=== PATIENT | female | born 1940 | race Caucasian/White ===

== ENCOUNTER 2017-08-13 13:12 | Observation (INO) | payer OTHER ==
[2017-08-13] VITALS (7 sets, daily range): BP systolic 117–125; BP diastolic 53–57
[~2017-08-13] VITALS: Ht 154.9 cm; Wt 51.7 kg
[~2017-08-13 13:12] MED LIST: AMLODIPINE BESYL5 MG PO; CALCIUM 500+D1 EACH PO; DICYCLOMINE HCL10 MG PO; DIOVAN160 MG PO; FERROUS SULFAT325 MG PO; FISH OIL500 M1 PO; FLECTOR PO; FLECTOR1 EACH PO; HYDROCHLOROTHIA25 MG PO; LASIX20 MG PO; LEXAPRO10 MG PO; MULTIVITAMINS1 EAC7 PO; NEURONTIN100 MG PO; PLETAL50 MG PO; TYLENOL WITH C1 EACH PO; ULTRAM 50MG50 MG PO; VALIUM10 MG PO; VITAMIN C100 MG PO; VITAMIN C1000 MG PO
--- OUTSIDE RECORDS SUMMARY | 2017-08-13 13:15 | XMS REPORT ---
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 Allergies, Adverse Reactions, Alerts This patient has no known allergies or adverse reactions. Medications This patient has no known medications. Results Test Description Test Time Test Comments Text Results Atomic Results Result Comments CHEST SINGLE (PORTABLE) [place] [address] Patient Name: JAME ARELLANO MR #: [id number] : 1940 Age/Sex: 76/F Req #: [id number] Adm Physician: Ordered by: CAM RUIZ MD Report #: [id number] Location: ER Room/Bed: Procedure: [id number] DX/CHEST SINGLE (PORTABLE) Exam Date: 02/04/17 Exam Time: 1320 REPORT STATUS: Signed PROCEDURE: A single AP view of the chest. COMPARISON: 03/06/16 INDICATIONS: DIARRHEA X 4 DAYS FINDINGS: Lines/tubes: None. Lungs: The lungs are well inflated and clear. There is no evidence of pneumonia or pulmonary edema. Pleura: There is no pleural effusion or pneumothorax. Heart and mediastinum: The heart and the mediastinum are unremarkable. Bones: No acute bony abnormality. IMPRESSION: 1. No acute cardiopulmonary disease. Dictated by: Jordan Mancia M.D. on 02/04/2017 at 13:34 Electronically approved by: Jordan Mancia M.D. on 02/04/2017 at 13:34 Dictated By: JORDAN MANCIA MD 33 Transcribed By: ARNIE on 02/04/171333 COPY TO: CAM RUIZ MD CT ABDOMEN/PELVIS W [place] [address] Patient Name: JAME ARELLANO MR #: [id number] : 1940 Age/Sex: 76/F Req #: [id number] Adm Physician: Ordered by: CAM RUIZ MD Report #: [id number] Location: ER Room/Bed: Procedure: [id number] CT/CT ABDOMEN/PELVIS W Exam Date: Exam Time: REPORT STATUS: Signed PROCEDURE: CT ABDOMEN AND PELVIS WITH CONTRAST TECHNIQUE: The abdomen and pelvis were scanned utilizing a multidetector helical scanner from the diaphragm to the lesser trochanter after the IV administration of 100cc of Isovue 370 and the oral administration of Gastroview. Coronal and sagittal multiplanar reformations were obtained. DLP: 239.88 mGy-cm COMPARISON: CT dated 03/04/16 INDICATIONS: COLITIS FINDINGS: LOWER THORAX: Bibasilar posterior subpleural bullous changes versus honeycombing. HEPATOBILIARY: No focal hepatic lesions. No biliary ductal dilatation. SPLEEN: No splenomegaly. PANCREAS: No focal masses or ductal dilatation. ADRENALS: No adrenal nodules. KIDNEYS/URETERS: No hydronephrosis. No stones. No adrenal mass. Bilateral subcentimeter hypodensities which are too small to characterize. PELVIC ORGANS/BLADDER: Unremarkable. PERITONEUM / RETROPERITONEUM: No free air or fluid. LYMPH NODES: No lymphadenopathy. 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 GI TRACT: Colonic diverticulosis without evidence of diverticulitis. There is wall thickening of the colon which could be due to under distention. Status post at least partial ascending colon resection. Suture line in right mid abdomen is intact. There is wall thickening, mucosal hyperenhancement and narrowing of the distal ileum in the right lower quadrant (series 2, image 49). BONES AND SOFT TISSUES: Lower lumbar spine degenerative changes, especially at L3-L4. There is grade 1 anterolisthesis of L4 in relation to L5 and L5 in relation to S1. IMPRESSION: Wall thickening/luminal narrowing and mucosal hyperenhancement of distal ileum. There is also wall thickening of the colon. Findings are concerning for infectious/inflammatory process like distal ileitis/colitis. Colonic diverticulosis without evidence of diverticulitis. Dictated by: Jordan Mancia M.D. on 02/04/2017 at 15:45 Electronically approved by: Jordan Mancia M.D. on 02/04/2017 at 15:45 Dictated By: JORDAN MANCIA MD [id number] Transcribed By: ARNIE on 02/04/17 1540 COPY TO: CAM RUIZ MD
[2017-08-13] MEDS ORDERED: SODIUM CHLORIDE 0.9% 1000ML 1,000 ML IV STA (13:41)
[2017-08-13] MEDS ORDERED: ASPIRIN 81 MG CHEW TAB PO ONE (13:45)
[2017-08-13] MEDS ORDERED: CEFTRIAXONE SOD 1 GM VIAL IM ONE (13:45)
[2017-08-13 13:57] LABS: BASOPHILS # (AUTO) 0.1 (0.0-0.1); BASOPHILS % 0.5 % (0.0-1.0); EOSINOPHILS # (AUTO) 0.1 (0.0-0.4); EOSINOPHILS % 0.7 % (0.0-6.0); HEMATOCRIT 32.3 % (34.2-44.1); HEMOGLOBIN 10.4 g/dL (12.0-16.0); LYMPHOCYTES # (AUTO) 0.8 (1.0-3.2); LYMPHOCYTES % 6.2 % (18.0-39.1); MEAN CORPUSCULAR HEMOGLOBIN 26.9 pg (28-32); MEAN CORPUSCULAR HGB CONC 32.2 g/dL (31-35); MEAN CORPUSCULAR VOLUME 83.7 fL (81-99); MONOCYTES # (AUTO) 1.2 (0.2-0.8); MONOCYTES % 9.6 % (4.4-11.3); NEUTROPHILS # (AUTO) 10.5 (2.1-6.9); NEUTROPHILS % 82.7 % (38.7-80.0); PLATELET COUNT 318 x10e3/uL (140-360); RED BLOOD COUNT 3.86 x10e6/uL (3.6-5.1); RED CELL DISTRIBUTION WIDTH 22.6 % (11.7-14.4)
[2017-08-13 13:57] LABS: BILIRUBIN,URINE NEGATIVE (NEGATIVE); CLARITY,URINE CLEAR (CLEAR); COLOR,URINE YELLOW (YELLOW); KETONES,URINE NEGATIVE (NEGATIVE); LEUKOCYTE ESTERASE ,URINE 2+ (NEGATIVE); NITRITE,URINE NEGATIVE (NEGATIVE); PROTEIN,URINE DIPSTICK NEGATIVE (NEGATIVE); URINE UROBILINOGEN 0.2 mg/dL (0.2 - 1)
[2017-08-13 14:11] LABS: BACTERIA,URINE MODERATE /HPF; EPITHELIAL CELLS,URINE MODERATE /LPF; RBC,URINE 0-5 /HPF (0-5)
[2017-08-13 14:14] LABS: INR 0.96
[2017-08-13 14:15] LABS: PARTIAL THROMBOPLASTIN TIME 29.5 seconds (23.8-35.5)
[2017-08-13] MEDS ORDERED: IBUPROFEN 600 MG TAB PO ONE (14:30)
--- NOTE | 2017-08-13 14:33 | Diagnostic Imaging Report ---
EXAMINATION: CHEST 2 VIEWS INDICATION: Chest pain. \S\ORDER PLACED BY MD \[id number] \S\1400 \S\Y COMPARISON: 03/06/2016 FINDINGS: PA and lateral views TUBES and LINES: None. LUNGS: Lungs are well inflated. Lungs are clear. There is no evidence of pneumonia or pulmonary edema. PLEURA: No pleural effusion or pneumothorax. HEART AND MEDIASTINUM: The cardiomediastinal silhouette is unremarkable. Aorta is calcified and mildly tortuous. BONES AND SOFT TISSUES: Generalized demineralization. No acute osseous lesion. Soft tissues are unremarkable. UPPER ABDOMEN: No free air under the diaphragm. IMPRESSION: No acute thoracic abnormality. Signed by: Dr. Jordan Saldaña MD on 08/13/2017 2:29 PM
[2017-08-13 14:34] LABS: ALANINE AMINOTRANSFERASE 30 IU/L (0-55); ALBUMIN 3.4 g/dL (3.5-5.0); ALKALINE PHOSPHATASE 93 IU/L (40-150); ANION GAP 14.3 mmol/L (8-16); BLOOD UREA NITROGEN 10 mg/dL (7-26); BUN/CREATININE RATIO 13 (6-25); CALCIUM 8.9 mg/dL (8.4-10.2); CARBON DIOXIDE 26 mmol/L (22-29); CHLORIDE 92 mmol/L (98-107); CREATINE KINASE 43 IU/L (29-168); CREATININE, SERUM 0.76 mg/dL (0.57-1.11); EST GLOMERULAR FILTRATION RATE > 60 ML/MIN (60-); GLUCOSE 107 mg/dL (74-118); POTASSIUM 4.3 mmol/L (3.5-5.1); SODIUM 128 mmol/L (136-145)
[2017-08-13] MEDS: SODIUM CHLORIDE 0.9% 1000ML 1,000 ML IV SCH (15:30)
[2017-08-13] MEDS ORDERED: SODIUM CHLORIDE 0.9% 1000ML 1,000 ML ONE (15:38)
[2017-08-13 16:13] LABS: FREE T4 (FREE THYROXINE) 1.2 ng/dL (0.9-1.8); THYROID STIMULATING HORMONE 1.69 uIU/mL (0.350-4.940)
[2017-08-13 16:54] LABS: BILIRUBIN,URINE NEGATIVE (NEGATIVE); CLARITY,URINE CLEAR (CLEAR); COLOR,URINE YELLOW (YELLOW); KETONES,URINE NEGATIVE (NEGATIVE); LEUKOCYTE ESTERASE ,URINE NEGATIVE (NEGATIVE); NITRITE,URINE NEGATIVE (NEGATIVE); PROTEIN,URINE DIPSTICK NEGATIVE (NEGATIVE); URINE UROBILINOGEN 0.2 mg/dL (0.2 - 1)
[2017-08-13 17:11] LABS: EPITHELIAL CELLS,URINE RARE /LPF; TRANSITIONAL EPI CELLS,URINE FEW
[2017-08-13] MEDS ORDERED: TRAMADOL HCL 50 MG TAB PO PRN (18:45)
[2017-08-13] MEDS ORDERED: GABAPENTIN 100 MG CAP PO PRN (18:45)
[2017-08-14] VITALS: BP 129/60
[2017-08-14 00:47] LABS: CREATINE KINASE 40 IU/L (29-168)
[2017-08-14 04:00] VITALS: BP 116/56
[2017-08-14] MEDS: SODIUM CHLORIDE 0.9% 1000ML 1,000 ML IV SCH (04:59)
[2017-08-14 05:59] LABS: BASOPHILS # (AUTO) 0.1 (0.0-0.1); BASOPHILS % 0.7 % (0.0-1.0); EOSINOPHILS # (AUTO) 0.1 (0.0-0.4); EOSINOPHILS % 1.7 % (0.0-6.0); HEMATOCRIT 29.2 % (34.2-44.1); HEMOGLOBIN 9.5 g/dL (12.0-16.0); LYMPHOCYTES # (AUTO) 1.5 (1.0-3.2); LYMPHOCYTES % 19.8 % (18.0-39.1); MEAN CORPUSCULAR HEMOGLOBIN 27.2 pg (28-32); MEAN CORPUSCULAR HGB CONC 32.5 g/dL (31-35); MEAN CORPUSCULAR VOLUME 83.7 fL (81-99); MONOCYTES % 13.5 % (4.4-11.3); NEUTROPHILS # (AUTO) 4.8 (2.1-6.9); NEUTROPHILS % 63.9 % (38.7-80.0); PLATELET COUNT 269 x10e3/uL (140-360); RED BLOOD COUNT 3.49 x10e6/uL (3.6-5.1); RED CELL DISTRIBUTION WIDTH 22.2 % (11.7-14.4)
[2017-08-14 06:17] LABS: CREATINE KINASE 35 IU/L (29-168)
[2017-08-14 06:47] LABS: ALANINE AMINOTRANSFERASE 21 IU/L (0-55); ALBUMIN 2.8 g/dL (3.5-5.0); ALBUMIN/GLOBULIN RATIO 0.9 (0.8-2.0); ALKALINE PHOSPHATASE 78 IU/L (40-150); ANION GAP 12.3 mmol/L (8-16); BLOOD UREA NITROGEN 7 mg/dL (7-26); BUN/CREATININE RATIO 10 (6-25); CALCIUM 8.4 mg/dL (8.4-10.2); CARBON DIOXIDE 27 mmol/L (22-29); CHLORIDE 101 mmol/L (98-107); CHOL/HDL RATIO 2.6 (3.0-3.6); CHOLESTEROL 144 MD/DL (0-199); CREATININE, SERUM 0.68 mg/dL (0.57-1.11); EST GLOMERULAR FILTRATION RATE > 60 ML/MIN (60-); GLUCOSE 113 mg/dL (74-118); HDL CHOLESTEROL 56 MG/DL (40-60); LDL CHOLESTEROL 76 MG/DL (60-130); MAGNESIUM 1.7 MG/DL (1.3-2.1); POTASSIUM 4.3 mmol/L (3.5-5.1); SODIUM 136 mmol/L (136-145); TRIGLYCERIDES 61 MG/DL (0-149)
[2017-08-14 08:00] VITALS: BP 127/60
[2017-08-14] MEDS: DIAZEPAM 5 MG TAB PO SCH ×2 (08:50→09:34)
[2017-08-14] MEDS ORDERED: OMEGA 3 POLYUNSAT FATTY ACIDS 1000 MG SOFTGEL PO SCH (09:00)
[2017-08-14] MEDS ORDERED: VALSARTAN 160 MG TAB PO SCH (09:00)
[2017-08-14] MEDS ORDERED: AMLODIPINE BESYLATE 5 MG TAB PO SCH (09:00)
[2017-08-14] MEDS ORDERED: ESCITALOPRAM OXALATE 10 MG TAB PO SCH (09:00)
[2017-08-14] MEDS ORDERED: MULTIVITAMINS/MINERALS TAB PO SCH (09:00)
[2017-08-14] MEDS ORDERED: CALCIUM CARBONATE 500 MG CHEWABLE TABS PO SCH (09:00)
[2017-08-14] MEDS ORDERED: ASCORBIC ACID 100 MG PO SCH (09:00)
[2017-08-14 12:00] VITALS: BP 109/56
--- NOTE | 2017-08-14 17:43 | Discharge Summary ---
PRIMARY CARE PHYSICIAN: Dr. Jose Zhou. FINAL DIAGNOSES 1. Atypical chest pain, on the right side chest pain and right shoulder. 2. Possible side effects from the thyroid medication. SUMMARY: Patient is a 76-year-old female came in because she is stating that after she was taking the thyroid medication, she developed some chest pain, but more on the right side. The chest x-ray otherwise unremarkable. Urinalysis on repeat was otherwise negative. The patient's first set of urinalysis was contamination. The second set showed leukocyte esterase negative. The patient is stable. No further workup needed. Chest x-ray unremarkable. Patient stated that she takes the thyroid medication only before she ate. She is now doing much better. She is stable. She will go home today. Follow up with Dr. Zhou as an outpatient. Patient will resume her home medications. Advised the patient to take thyroid medication with food to see if that will improve her symptom. Job#: [id number] VAS
== END 2017-08-14 14:49 | disposition home or self-care (01) ==
LOC: ER 13:12 → ERHOLD 16:12 → IMCU 16:16
PROVIDERS: ADMIT Internal Medicine; ATTEND Internal Medicine
DX: R07.89 Other chest pain (principal); E87.1 Hypo-osmolality and hyponatremia; I10 Essential (primary) hypertension; E03.9 Hypothyroidism, unspecified
CPT/HCPCS: 36415; 71046; 80053; 80061; 81001; 82550; 82553; 83605; 83735; 83880; 84439; 84443; 84484; 85025; 85610; 85730; 87040; 93005; 99284; G0378; J0696; J7030

== ENCOUNTER 2024-06-13 16:15 | Emergency (ER) | payer MEDICARE ==
[~2024-06-13] VITALS: Ht 154.9 cm; Wt 44.9 kg
[~2024-06-13 16:15] MED LIST changes: +ATORVASTATIN CA10 MG PO; +DICLOFENAC-MIS1 EAC2; +LOTREL 5-20 MG1 EACH; +MELATONIN3 MG PO; +METRONIDAZOLE500 MG PO; +MONUROL3 GM PO
[2024-06-13 16:51] VITALS: TEMP 98.5
[2024-06-13 18:02] LABS: CORONAVIRUS COVID-19 AG NEGATIVE (NEGATIVE); INFLUENZA A AG NEGATIVE (NEGATIVE); INFLUENZA B AG NEGATIVE (NEGATIVE)
[2024-06-13] MEDS ORDERED: ONDANSETRON ODT4 MG PO (19:07)
[2024-06-13] MEDS ORDERED: BENZONATATE100 MG PO (19:07)
[2024-06-13 19:44] VITALS: PULSE 81; RESP 19
[2024-06-13] MEDS ORDERED: DICLOFENAC POTA50 MG PO (20:00)
[2024-06-13 20:12] VITALS: BP 143/79; PULSE 85; RESP 18; TEMP 98.1; O2SAT 98
== END 2024-06-13 20:12 | disposition home or self-care (01) ==
LOC: ER 19:00
DX: R05.9 Cough, unspecified (principal); J06.9 Acute upper respiratory infection, unspecified; I10 Essential (primary) hypertension; E78.5 Hyperlipidemia, unspecified; F41.9 Anxiety disorder, unspecified; F32.A Depression, unspecified; M54.9 Dorsalgia, unspecified; G89.29 Other chronic pain; Z11.52 Encounter for screening for COVID-19; Z98.0 Intestinal bypass and anastomosis status
CPT/HCPCS: 71046; 99283

== ENCOUNTER 2024-07-03 13:35 | Emergency (ER) | payer MEDICARE ==
[~2024-07-03] VITALS: Ht 152.4 cm; Wt 42.2 kg
[~2024-07-03 13:35] MED LIST changes: +BENZONATATE100 MG PO; +DICLOFENAC POTA50 MG PO; +ONDANSETRON ODT4 MG PO
[2024-07-03 13:40] VITALS: TEMP 97.9
[2024-07-03 16:04] VITALS: PULSE 79; RESP 16; O2SAT 100
== END 2024-07-03 16:14 | disposition home or self-care (01) ==
LOC: ER 15:55
DX: F13.239 Sedative, hypnotic or anxiolytic dependence with withdrawal, unspecified (principal); F13.20 Sedative, hypnotic or anxiolytic dependence, uncomplicated; I10 Essential (primary) hypertension; E78.5 Hyperlipidemia, unspecified; F41.9 Anxiety disorder, unspecified; F32.A Depression, unspecified; M54.9 Dorsalgia, unspecified; G89.29 Other chronic pain; Z87.19 Personal history of other diseases of the digestive system; Z98.0 Intestinal bypass and anastomosis status
CPT/HCPCS: 93005; 99282